=== PATIENT | male | born 1985 | race Caucasian/White ===

== ENCOUNTER 2017-01-24 11:52 | Emergency (ER) | payer BC, OTHER ==
[2017-01-24 12:00] VITALS: BP 131/78
--- NOTE | 2017-01-24 12:19 | ED Physician Documentation ---
PD HPI HEENT - Stated complaint Stated Complaint: LUMP IN THROAT - Chief complaint Chief Complaint: Heent - History obtained from History obtained from: Patient - History of Present Illness Timing - onset: Yesterday Timing - duration: Days Timing - details: Gradual onset, Still present (has had some sore throat and then today had some coughing and feels like there is a lump in his throat. Was not eating at the time.) Location: Throat Associated symptoms: Swollen nodes. No: Fever Similar symptoms before: Has not had sx before Review of Systems Constitutional: reports: Myalgias. denies: Fever, Chills Nose: denies: Rhinorrhea / runny nose, Congestion Throat: reports: Sore throat Cardiac: denies: Chest pain / pressure Respiratory: reports: Cough GI: denies: Abdominal Pain, Nausea, Vomiting, Diarrhea Skin: denies: Rash PD PAST MEDICAL HISTORY - Past Medical History Cardiovascular: None Respiratory: None Neuro: None Endocrine/Autoimmune: None GI: None : None HEENT: None Psych: None Musculoskeletal: None Derm: None - Past Surgical History Past Surgical History: No - Present Medications Home Medications: Ambulatory Orders Medication Instructions Recorded Confirmed Cephalexin Suspension [Keflex] 500 mg PO TID #150 ml 01/24/17 PrednisoLONE [Prelone] 30 mg PO DAILY #50 ml 01/24/17 - Allergies Allergies/Adverse Reactions: Allergies Allergy/AdvReac Type Severity Reaction Status Date / Time No Known Drug Allergies Allergy Verified 01/24/17 12:00 - Social History Does the pt smoke?: Yes Smoking Status: Current every day smoker Does the pt drink ETOH?: Yes Does the pt have substance abuse?: No - Immunizations Immunizations are current?: No Immunizations: TDAP >10years/unknown - POLST Patient has POLST: No PD ED PE NORMAL - Vitals Vital signs reviewed: Yes - General General: Alert and oriented X 3, No acute distress, Well developed/nourished - HEENT HEENT: Ears normal, Moist mucous membranes. No: Pharynx benign (tonsils enlarged and red with some spotty white. No peritonsillar swelling seen, though his feeling of some lower lump feeling would be concerning for early. Anterior neck nodes noted. ) - Neck Neck: Supple, no meningeal sign - Cardiac Cardiac: RRR, No murmur - Respiratory Respiratory: Clear bilaterally - Abdomen Abdomen: Soft, Non tender - Derm Derm: Normal color, Warm and dry Results - Vitals Vitals: Oxygen O2 Source Room air - Labs Labs: Microbiology 01/24/17 12:05 Group A Strep Throat Culture - Final Throat Laboratory Tests 01/24/17 12:05 Group A Strep Rapid Negative PD MEDICAL DECISION MAKING - ED course Complexity details: reviewed results, considered differential (Looks suspicious for strep even though rapid is negative. Will treeat empirically pending culture. ), d/w patient Departure - Departure Disposition: Home, Self Care Clinical Impression: Pharyngitis Qualifiers: Pharyngitis/tonsillitis etiology: unspecified etiology Qualified Code(s): J02.9 - Acute pharyngitis, unspecified Condition: Stable Record reviewed to determine appropriate education?: Yes Instructions: ED Strep Pharyngitis Poss Prescriptions: Cephalexin Suspension [Keflex] 500 mg PO TID #150 ml PrednisoLONE [Prelone] 30 mg PO DAILY #50 ml Comments: Tylenol or Ibuprofen as needed for pains/fevers. Drink lots of fluids. Prednisolone steroid daily for 5 days. Cephalexin antibiotic three times daily as directed. Recheck if not improved over the next couple of days. Forms: Activity restrictions Discharge Date/Time: 01/24/17 12:58
[2017-01-24 12:22] LABS: RAPID STREP SCREEN REAGENT QC YELLOW (YELLOW)
[2017-01-24] MEDS ORDERED: DEXAMETHASONE 10 MG/ML VIAL PO STA (12:38)
[2017-01-24] MEDS ORDERED: DEXAMETHASONE 10 MG/ML VIAL ONE (12:44)
[2017-01-24] MEDS ORDERED: CHERRY SYRUP 10 ML UDC PO ONE (12:44)
== END 2017-01-24 12:58 | disposition home or self-care (01) ==
LOC: ED 11:52
DX: J02.9 Acute pharyngitis, unspecified (principal); F17.200 Nicotine dependence, unspecified, uncomplicated
CPT/HCPCS: 87070; 87430; 99283; A9270

== ENCOUNTER 2017-11-27 03:03 | Emergency (ER) | payer SELFPAY ==
--- NOTE | 2017-11-27 03:58 | XRAY Preliminary Report ---
Exam: XR ABDOMEN ACUTE IMPRESSION: 1. Nonspecific gas pattern without obvious obstruction. [facility] SITE ID: [id number]
--- NOTE | 2017-11-27 03:59 | XRAY Report ---
EXAM: ABDOMINAL SERIES AND PA CHEST EXAM DATE: 11/27/2017 03:41 AM. CLINICAL HISTORY: Abdominal pain and distention. COMPARISON: Chest, 05/05/2015. TECHNIQUE: 2 views abdomen and 1 view chest. FINDINGS: CHEST: Lungs/Pleura: No alveolar consolidation or pleural effusion seen. No pneumothorax. Mediastinum: Within exam limitations, cardiomediastinal contour is normal. ABDOMEN: Bowel Gas Pattern: No obvious dilated loops. A few colonic air-fluid levels are seen. Free Air: None. Other: None. IMPRESSION: 1. Nonspecific gas pattern without obvious obstruction. [facility] Referring Provider Line: [phone] SITE ID: [id number]
--- NOTE | 2017-11-27 04:06 | ED Physician Documentation ---
PD HPI ABD PAIN - Stated complaint Stated Complaint: ABD PRESSURE - Chief complaint Chief Complaint: Abd Pain - History obtained from History obtained from: Patient, Family - History of Present Illness Timing - onset: How many weeks ago (1) Timing - details: Gradual onset, Intermittant Quality: Aching, Indigestion, Fullness/distended Location: All over / everywhere, Epigastric Worsened by: Eating Associated symptoms: Constipation. No: Fever, Nausea, Vomiting, Diarrhea Similar symptoms before: Has not had sx before Recently seen: Not recently seen - Additional information Additional information: Patient is a 32 year old male with no significant past medical history who is presenting to the emergency department for abdominal pain and bloating. patient states that the symptoms have been going on for the last week or so but his girlfriend made him come in. patient states that he has bloating, burping and pressure. patient states that the symptoms are worse when he lies on his stomach. Patient stated that he had a small hard stool yesterday. Review of Systems Constitutional: denies: Fever, Chills Eyes: reports: Reviewed and negative Ears: reports: Reviewed and negative Nose: reports: Reviewed and negative Throat: reports: Reviewed and negative Cardiac: denies: Chest pain / pressure Respiratory: denies: Dyspnea, Cough GI: reports: Abdominal Pain, Constipation. denies: Nausea, Vomiting : denies: Dysuria, Frequency Skin: reports: Reviewed and negative Musculoskeletal: reports: Reviewed and negative Neurologic: reports: Reviewed and negative Psychiatric: reports: Reviewed and negative Immunocompromised: denies: Immunocompromised PD PAST MEDICAL HISTORY - Past Medical History Cardiovascular: None Respiratory: None Neuro: None Endocrine/Autoimmune: None GI: None : None HEENT: None Psych: None Musculoskeletal: None Derm: None - Past Surgical History Past Surgical History: No - Present Medications Home Medications: Ambulatory Orders Medication Instructions Recorded Confirmed Cephalexin Suspension [Keflex] 500 mg PO TID #150 ml 01/24/17 PrednisoLONE [Prelone] 30 mg PO DAILY #50 ml 01/24/17 Sennosides/Docusate Sodium [Colace 2 each PO BID #30 tablet 11/27/17 2-in-1 Tablet] - Allergies Allergies/Adverse Reactions: Allergies Allergy/AdvReac Type Severity Reaction Status Date / Time No Known Drug Allergies Allergy Verified 01/24/17 12:00 - Social History Does the pt smoke?: Yes Smoking Status: Current every day smoker Does the pt drink ETOH?: Yes Does the pt have substance abuse?: No - Immunizations Immunizations are current?: No Immunizations: TDAP >10years/unknown - POLST Patient has POLST: No PD ED PE NORMAL - Vitals Vital signs reviewed: Yes - General General: Alert and oriented X 3, No acute distress - HEENT HEENT: Atraumatic, Moist mucous membranes - Neck Neck: Supple, no meningeal sign - Cardiac Cardiac: RRR - Respiratory Respiratory: No respiratory distress - Derm Derm: Normal color, Warm and dry - Extremities Extremities: No deformity - Neuro Neuro: Alert and oriented X 3 Eye Opening: Spontaneous PD ED PE EXPANDED - Abdomen Abdomen: Tender to palpation, Generalized/diffuse. No: Rebound, Guarding Results - Vitals Vitals: Vital Signs - 24 hr 11/27/17 11/27/17 03:09 04:16 Temperature 36.3 C L Heart Rate 91 77 Respiratory 16 16 Rate Blood Pressure 153/91 H 135/85 H O2 Saturation 97 95 Oxygen O2 Source Room air - Rads (name of study) abd x-ray Radiology: Final report received, EMP read contemporaneously (moderate stool burden, ) PD MEDICAL DECISION MAKING - ED course Complexity details: reviewed old records, reviewed results, re-evaluated patient , considered differential, d/w patient, d/w family ED course: Patient was seen and examined at bedside. patient was sent for imaging. when patient returned the results were reviewed. Findings were consistent with constipation. patient was made aware of the findings. Patient was well appearing and given detailed discharge and follow up instructions. patient was stable for outpatient follow up. Departure - Departure Disposition: 01 Home, Self Care Clinical Impression: Constipation Condition: Good Instructions: ED Constipation Follow-Up: primary,care provider [Other] - As Needed Prescriptions: Sennosides/Docusate Sodium [Colace 2-in-1 Tablet] 2 each PO BID #30 tablet Comments: Your symptoms today are being caused by constipation. The most important thing you can do is increase your water intake. You should also increase the amounts of raw fruits and vegetables. You should follow up with your doctor if your symptoms don't improve in the next week. Discharge Date/Time: 11/27/17 04:16
[2017-11-27 04:16] VITALS: BP 135/85
== END 2017-11-27 04:16 | disposition home or self-care (01) ==
LOC: ED 03:03
DX: K59.00 Constipation, unspecified (principal); F17.200 Nicotine dependence, unspecified, uncomplicated
CPT/HCPCS: 74022; 80053; 83690; 85025; 99283

== ENCOUNTER 2017-12-12 21:13 | Emergency (ER) | payer SELFPAY ==
--- NOTE | 2017-12-12 22:12 | ED Physician Documentation ---
PD HPI ABD PAIN - Stated complaint Stated Complaint: ABD PX - Chief complaint Chief Complaint: MHE - History obtained from History obtained from: Patient - History of Present Illness Timing - onset: How many hours ago (1.5) Timing - details: Abrupt onset Quality: Dull, Pain Location: Epigastric Radiation: Other (no radiation) Improved by: Other (no ameliorating factors) Worsened by: Other (no exacerbating factors tonight, although some previous episodes worsen with food) Associated symptoms: Nausea. No: Vomiting, Diarrhea, Constipation (patient does not feel he is constipated) Similar symptoms before: Other (evaluated earlier this month in this ED for same ) Recently seen: Emergency Dept - Additional information Additional information: c/o epigastric dull ache x 1.5 hours. has had similar episodes x weeks Review of Systems Constitutional: reports: Reviewed and negative Cardiac: reports: Reviewed and negative Respiratory: reports: Reviewed and negative GI: reports: Abdominal Pain, Nausea. denies: Abdominal Swelling, Vomiting, Diarrhea : denies: Dysuria, Frequency PD PAST MEDICAL HISTORY - Past Medical History Cardiovascular: None Respiratory: None Neuro: None Endocrine/Autoimmune: None GI: None : None HEENT: None Psych: None Musculoskeletal: None Derm: None - Past Surgical History Past Surgical History: No - Present Medications Home Medications: Ambulatory Orders Medication Instructions Recorded Confirmed Cephalexin Suspension [Keflex] 500 mg PO TID #150 ml 01/24/17 PrednisoLONE [Prelone] 30 mg PO DAILY #50 ml 01/24/17 Sennosides/Docusate Sodium [Colace 2 each PO BID #30 tablet 11/27/17 2-in-1 Tablet] - Allergies Allergies/Adverse Reactions: Allergies Allergy/AdvReac Type Severity Reaction Status Date / Time No Known Drug Allergies Allergy Verified 12/12/17 21:19 - Social History Does the pt smoke?: Yes Smoking Status: Current every day smoker Does the pt drink ETOH?: Yes Does the pt have substance abuse?: No - Immunizations Immunizations are current?: No Immunizations: TDAP >10years/unknown - POLST Patient has POLST: No PD ED PE NORMAL - Vitals Vital signs reviewed: Yes - General General: Alert and oriented X 3, No acute distress, Well developed/nourished - Cardiac Cardiac: RRR, No murmur - Respiratory Respiratory: No respiratory distress, Clear bilaterally - Abdomen Abdomen: Normal bowel sounds, Soft, Non distended - Derm Derm: Normal color, Warm and dry, No rash PD ED PE EXPANDED - Abdomen Abdomen: Tender to palpation, RUQ, Epigastric. No: Rebound, Guarding Results - Vitals Vitals: Oxygen O2 Source Room air - Labs Labs: Laboratory Tests 12/12/17 12/12/17 22:53 22:53 WBC 7.0 RBC 5.46 Hgb 15.4 Hct 44.9 MCV 82.3 MCH 28.2 MCHC 34.2 RDW 13.2 Plt Count 176 MPV 8.7 Neut # 4.0 Lymph # 2.1 Gila # 0.7 Eos # 0.1 Baso # 0.1 Absolute Nucleated RBC 0.00 Nucleated RBC % 0.0 Sodium 137 Potassium 3.8 Chloride 105 Carbon Dioxide 25 Anion Gap 7.0 BUN 23 H Creatinine 1.1 Estimated GFR (MDRD) 78 L Glucose 115 H Calcium 9.4 Total Bilirubin 0.6 AST 24 ALT 24 Alkaline Phosphatase 48 Total Protein 7.1 Albumin 4.4 Globulin 2.7 Albumin/Globulin Ratio 1.6 Lipase 39 - Rads (name of study) RUQ US Radiology: Prelim report reviewed, See rad report PD MEDICAL DECISION MAKING - ED course Complexity details: reviewed results, re-evaluated patient, considered differential, d/w patient ED course: declined medication for symptoms during ED stay Departure - Departure Disposition: 01 Home, Self Care Clinical Impression: Abdominal pain Condition: Good Instructions: ED Abdominal Pain Unkn Cause Male Follow-Up: [facility] [Provider Group] [facility] [Provider Group] Comments: Take omeprazole ([id number]) once daily for 2 weeks. You can try magnesium citrate (onbe-rdl-imlzwxj) as directed on the label if you feel constipated. Discharge Date/Time: 12/13/17 02:17
[2017-12-12 22:59] LABS: BASOPHILS # (AUTO) 0.1 10^3/uL (0.0-0.1); BASOPHILS % (AUTO) 0.9 %; EOSINOPHILS # (AUTO) 0.1 10^3/uL (0.0-0.7); EOSINOPHILS % (AUTO) 0.9 %; HGB - HEMOGLOBIN 15.4 g/dL (14.0-18.0); LYMPHOCYTES # (AUTO) 2.1 10^3/uL (1.5-3.5); LYMPHOCYTES % (AUTO) 30.4 %; MEAN CORPUSCULAR HEMOGLOBIN 28.2 pg (27.0-31.0); MEAN CORPUSCULAR HGB CONC 34.2 g/dL (32.0-36.0); MEAN CORPUSCULAR VOLUME 82.3 fL (80.0-94.0); MEAN PLATELET VOLUME 8.7 fL (7.4-11.4); MONOCYTES # (AUTO) 0.7 10^3/uL (0.0-1.0); MONOCYTES % (AUTO) 10.3 %; NEUTROPHILS % (AUTO) 57.5 %; PLT - PLATELET COUNT 176 10^3/uL (130-450); RED BLOOD COUNT 5.46 10^6/uL (4.70-6.10); RED CELL DISTRIBUTION WIDTH 13.2 % (12.0-15.0)
[2017-12-12 23:14] LABS: ALBUMIN 4.4 g/dL (3.2-5.5); ALBUMIN/GLOBULIN RATIO 1.6 (1.0-2.2); BILIRUBIN,TOTAL 0.6 mg/dL (0.2-1.0); CALCIUM 9.4 mg/dL (8.5-10.3); CREATININE 1.1 mg/dL (0.6-1.2); TOTAL PROTEIN 7.1 g/dL (6.7-8.2)
--- NOTE | 2017-12-13 00:17 | Ultrasound Preliminary Report ---
Exam: US ABDOMEN LIMITED IMPRESSION: 1. Gallbladder appears normal. 2. Fatty liver. [facility] SITE ID: [id number]
--- NOTE | 2017-12-13 00:26 | Ultrasound Report ---
EXAM: ABDOMEN ULTRASOUND LIMITED, RUQ EXAM DATE: 12/13/2017 12:07 AM. CLINICAL HISTORY: Abdominal pain. COMPARISON: None. TECHNIQUE: Real-time scanning was performed with static images obtained. FINDINGS: Liver: Echogenic without gross focal abnormality seen. Main portal vein flow: Hepatopetal. Gallbladder: Normal. No stones, wall thickening, or sonographic Montoya's sign. Biliary System: CBD measures 3 mm. No intrahepatic or extrahepatic ductal dilatation. Other: Visualized portions of the pancreas and right kidney are unremarkable. IMPRESSION: 1. Gallbladder appears normal. 2. Fatty liver. [facility] Referring Provider Line: [phone] SITE ID: [id number]
[2017-12-13 02:17] VITALS: BP 114/63
== END 2017-12-13 02:17 | disposition home or self-care (01) ==
LOC: ED 21:13
DX: R10.9 Unspecified abdominal pain (principal); K76.0 Fatty (change of) liver, not elsewhere classified; F17.200 Nicotine dependence, unspecified, uncomplicated; Z79.52 Long term (current) use of systemic steroids
CPT/HCPCS: 36415; 76705; 80053; 83690; 85025; 99283

== ENCOUNTER 2019-09-07 13:56 | Outpatient (CLI) | payer MEDICAID, OTHER ==
--- NOTE | 2019-09-07 16:21 | SLEEP CARE CONSULTATION ---
Information from patient questionnaire entered by Anne Abraham. I have reviewed and concur with the information entered by Anne Abraham. This document represents the service I personally performed and the decisions made by me, Jerrod Reis MD, [facility]. History of Present Illness Reason for Visit: New patient Chief Complaint: reports: Snoring, Excessive daytime sleepiness, Observed pauses in breathing, Frequent awakenings at night Duration of Symptoms: long time Usual bedtime: [id number] Time it takes to fall asleep: 1-2 hours Snores at night: Yes Observed to quit breathing while asleep: Yes Sleeps alone due to snoring: No Number of times waking at night: 3-4 Toss, Turn, or Twitch while sleeping: No Recalls having dreams: Yes Usually gets out of bed at: [id number] Feels refreshed in the morning: No Morning headache: Yes Sleepy or fatigued during the day: Yes Ever fallen asleep while driving: No Takes day naps: Yes Dreams during day naps: No Prior sleep studies: Yes Year and Where: in home test Additional HPI information: I had the pleasure of seeing Mr. Byrd today regarding the possibility of him having a sleep disorder. As you know, he is a 33 year old gentleman who observed to quit breathing while having a surgery. He had a home sleep apnea test (HSAT) a year or two ago that was negative. The patient tells me that he normally goes to bed around 9 - 10 pm, and it takes him approximately 1 2 hours to fall asleep. He takes an [id number]-rnedtpy sleep aid. He has been told that he snores loudly and irregularly at night. He has also been observed to stop breathing in his sleep. His girlfriend can still sleep in the same bed. He can recall waking up on the average of 3 - 4 times during the night. Most of the time he wakes up because of no apparent reasons. He has never awakened because of his own snoring, choking, or having to gasp for air. There is not a lot of tossing and turning in his sleep. No somniloquy (sleep talking) or somnambulism (sleep walking). Generally he can recall having dreams. In the morning he usually gets up out of the bed around 8 - 9 a.m. not feeling refreshed nor rested. He usually does have a morning headache lasting less than an hour. During the day he complains of feeling sleepy and fatigued. His score on [place] Sleepiness Scale is 6 out of 24. He has never fallen asleep while driving nor has had any accident due to sleepiness. He usually takes naps during the day. Upon falling asleep during the day he denies having vivid dreams. He has never had sleep paralysis, experienced cataplexy but reports symptoms of restless leg syndrome. He denies having impaired concentration during the day. Subjective Initial [place] Sleepiness Scale score: 6 Past Medical History Past Medical History: reports: Anxiety, Depression Social History The patient's occupation is a caregiver. Patient is and lives in [place]. Have you smoked in the past 12 months: Yes Years of smokin Alcohol use: No Caffeine use: Yes Caffeine amount and frequency: 2/day Family History Family history of sleep disordered breathing: Yes Family Hx Sleep Apnea: Father: Snoring ( ), Other: Sleep apnea - Treated (uncle) Allergies and Home Medications Drug allergies reviewed: Yes Home medication list reviewed: Yes Allergy and home medication list: Meds: Colace, Xanax, Lexapro Allergies: no known drug allergies Review of Systems Weight gain over past 5 years: 10 Cardiovascular: reports: palpitations Respiratory: denies: shortness of breath, wheeze, sputum production, chronic cough, other Gastrointestinal: reports: heartburn Urinary: denies: incontinence, frequency, urgency, impotence, other Neurological: denies: headaches, seizure, head trauma, disorientation, speech dysfunction, gait or balance problems, fainting or unconsciousness, other Psychiatric: reports: anxiety, depression Ear/Nose/Throat: reports: sinus problems Endocrine: reports: too hot or cold Musculoskeletal: denies: joint pain, neck pain, back pain, joint swelling, muscle pain or cramping, mobility problems, other Immunologic: reports: sneezing Physical Exam Vital signs obtained and entered by: Dr. Reis Blood Pressure: 142/89 Cuff size: regular Heart Rate: 72 O2 Saturation: 94 Height: 6 ft 1 in Weight: 240 lb Body Mass Index: 31.6 BMI Classification: Obesity Class 1 Neck circumference: 19.5 Mood/affect: normal HEENT: No craniofacial malformation Nostrils: patent to airflow Turbinates: normal Septum: midline Mouth and throat: narrow oropharynx Soft palate: long Hard palate: normal Uvula: normal Uvula visualization: 50% Mallampati Class II Tongue: normal in size Tonsils: 2+ Chin and jaw: normal size and position Neck: normal w/o lymphadenopathy or thyromegaly Heart: regular rate and rhythm Lungs: clear bilaterally Abdomen: soft, non-tender Extremities: no edema or clubbing Neurologic: intact, no focal deficits Impression and Plan IMPRESSION: 1. Obstructive Sleep Apnea-Hypopnea Syndrome, as suggested by history of loud and irregular snoring, observed cessation of breath while asleep, frequent awake nings during the night, unrefreshed sleep, and daytime hypersomnolence. Narrow oropharynx and obesity are common predisposing factors for obstructive sleep apnea-hypopnea syndrome. Pathophysiology of sleep-disordered breathing was discussed. Because the suspicion of obstructive sleep apnea-hypopnea is high and he had a negative home sleep apnea test (HSAT), the patient will be scheduled for an in-laboratory polysomnography which is more accurate. Plan: 1. Schedule polysomnography 2. Avoid long distance driving or when feeling sleepy. 3. Avoid alcohol, sedative and muscle relaxant around bedtime. 4. Attempt to lose weight. 5. Return in 1 to 2 weeks after the study to discuss results and initiate therapy. I spent 100% of this visit face to face with the patient with greater than 50% of this was spent time counseling the patient and coordination of care.
[2019-09-07 16:22] VITALS: BP 142/89
== END 2019-09-07 13:57 | disposition home or self-care (01) ==
LOC: SC 13:56
PROVIDERS: ATTEND Internal Medicine Pulmonary Disease
DX: G47.10 Hypersomnia, unspecified (principal); R06.81 Apnea, not elsewhere classified; G47.8 Other sleep disorders; R06.83 Snoring; E66.9 Obesity, unspecified; Z68.31 Body mass index [BMI] 31.0-31.9, adult
CPT/HCPCS: 99203; 99212

== ENCOUNTER 2019-09-17 10:00 | Outpatient (CLI) | payer MEDICAID ==
[2019-09-17 12:29] LABS: BASOPHILS # (AUTO) 0.1 10^3/uL (0.0-0.1); BASOPHILS % (AUTO) 0.7 %; EOSINOPHILS # (AUTO) 0.1 10^3/uL (0.0-0.7); EOSINOPHILS % (AUTO) 1.1 %; HGB - HEMOGLOBIN 17.3 g/dL (14.0-18.0); LYMPHOCYTES # (AUTO) 3.2 10^3/uL (1.5-3.5); LYMPHOCYTES % (AUTO) 44.6 %; MEAN CORPUSCULAR HEMOGLOBIN 29.3 pg (27.0-31.0); MEAN CORPUSCULAR HGB CONC 34.5 g/dL (32.0-36.0); MEAN CORPUSCULAR VOLUME 85.1 fL (80.0-94.0); MEAN PLATELET VOLUME 10.8 fL (7.4-11.4); MONOCYTES # (AUTO) 0.7 10^3/uL (0.0-1.0); MONOCYTES % (AUTO) 10.2 %; NEUTROPHILS # (AUTO) 3.1 10^3/uL (1.5-6.6); NEUTROPHILS % (AUTO) 42.8 %; PLT - PLATELET COUNT 238 10^3/uL (130-450); RED CELL DISTRIBUTION WIDTH 12.5 % (12.0-15.0); WHITE BLOOD COUNT 7.2 x10^3/uL (4.8-10.8)
[2019-09-17 13:17] LABS: ALBUMIN 4.3 g/dL (3.2-5.5); ALBUMIN/GLOBULIN RATIO 1.4 (1.0-2.2); ALKALINE PHOSPHATASE 50 IU/L (42-121); ALT ALANINE AMINOTRANSFERASE 43 IU/L (10-60); AST ASPARTATE AMINOTRANSFERASE 27 IU/L (10-42); BILIRUBIN,TOTAL 0.7 mg/dL (0.2-1.0); BUN - BLOOD UREA NITROGEN 21 mg/dL (6-20); CALCIUM 9.5 mg/dL (8.5-10.3); CARBON DIOXIDE - CO2 26 mmol/L (21-32); CHLORIDE 103 mmol/L (101-111); CHOL/HDL RATIO 6.8 (<5.0); CHOLESTEROL 204 mg/dL; CREATININE 1.4 mg/dL (0.6-1.2); GFR - MDRD 59 (>89); GLUCOSE 112 mg/dL (70-100); HDL CHOLESTEROL 30 mg/dL; LDL CHOLESTEROL,CALCULATED 96 mg/dL; LDL/HDL RATIO 3.2 (<3.6); SODIUM 139 mmol/L (135-145); TOTAL PROTEIN 7.4 g/dL (6.7-8.2); VLDL CHOLESTEROL 78 mg/dL
[2019-09-17 13:28] LABS: HB2 TOTAL 17.1 g/dL; HEMOGLOBIN A1C 0.68 g/dL; HEMOGLOBIN A1C % 5.8 % (4.6-6.2)
== END 2019-09-17 23:59 | disposition home or self-care (01) ==
LOC: LAB.N 10:00
PROVIDERS: ATTEND Family Medicine
DX: Z00.00 Encounter for general adult medical examination without abnormal findings (principal)
CPT/HCPCS: 36415; 80053; 80061; 83036; 83721; 84443; 85025

== ENCOUNTER → 2019-10-14 | Outpatient (CLI) | payer MEDICAID | LOC: SC 19:30 | PROVIDERS: ATTEND Internal Medicine Pulmonary Disease | DX: G47.33 Obstructive sleep apnea (adult) (pediatric) (principal) | CPT/HCPCS: 95806 ==

== ENCOUNTER 2019-12-14 08:00 | Outpatient (CLI) | payer MEDICAID ==
[2019-12-14 13:49] LABS: ALBUMIN 4.4 g/dL (3.2-5.5); ALBUMIN/GLOBULIN RATIO 1.5 (1.0-2.2); ALKALINE PHOSPHATASE 57 IU/L (42-121); ALT ALANINE AMINOTRANSFERASE 32 IU/L (10-60); AST ASPARTATE AMINOTRANSFERASE 24 IU/L (10-42); BILIRUBIN,TOTAL 0.8 mg/dL (0.2-1.0); BUN - BLOOD UREA NITROGEN 23 mg/dL (6-20); CALCIUM 9.1 mg/dL (8.5-10.3); CARBON DIOXIDE - CO2 25 mmol/L (21-32); CHLORIDE 102 mmol/L (101-111); CHOL/HDL RATIO 7.4 (<5.0); CHOLESTEROL 215 mg/dL; CREATININE 1.1 mg/dL (0.6-1.2); GLUCOSE 121 mg/dL (70-100); HDL CHOLESTEROL 29 mg/dL; LDL CHOLESTEROL,CALCULATED 141 mg/dL; LDL/HDL RATIO 4.9 (<3.6); SODIUM 136 mmol/L (135-145); TOTAL PROTEIN 7.4 g/dL (6.7-8.2); VLDL CHOLESTEROL 45 mg/dL
[2019-12-14 13:50] LABS: HEMOGLOBIN A1C 0.59 g/dL; HEMOGLOBIN A1C % 5.3 % (4.6-6.2)
== END 2019-12-14 23:59 | disposition home or self-care (01) ==
LOC: LAB.WCP 08:00
PROVIDERS: ATTEND Family Medicine
DX: N18.3 Chronic kidney disease, stage 3 (moderate) (principal); R73.03 Prediabetes; E78.5 Hyperlipidemia, unspecified
CPT/HCPCS: 36415; 80053; 80061; 83036; 83721

== ENCOUNTER 2019-12-16 17:06 | Outpatient (CLI) | payer MEDICAID ==
--- NOTE | 2019-12-16 16:32 | SLEEP CARE CONSULTATION ---
Information from patient questionnaire entered by Anne Abraham. I have reviewed and concur with the information entered by Anne Abraham. This document represents the service I personally performed and the decisions made by me, Jasmine Tristan, RN, MSN, PLUMBING HARDWARE ASSEMBLER. History of Present Illness Service Date and Time: 12/16/2019 1600 Initial [place] Sleepiness Scale score: 6 Additional HPI information: SAMMY BYRD returns for tele health video follow up to discuss results of the recently performed home sleep study. I explained the pathophysiology behind obstructive sleep apnea. We then spent quite a bit of time discussing different treatment options. For mild ob structive sleep apnea, surgery and oral appliance are alternatives to nasal CPAP therapy but in moderate or severe cases, nasal CPAP is the most effective and reliable treatment. I reviewed the impact of weight changes on sleep apnea and strongly recommended losing weight. After some discussion, the patient opted to go with the nasal CPAP therapy. Nasal autoCPAP set at [id number] will be ordered with rationale explained. A manual titration study will be ordered if unable to find optimal pressure with office adjustments. I explained how CPAP machine works and what to expect when using the machine. Using CPAP every night in order to get used to it was emphasized. Patient advised to put CPAP mask on before getting into bed so as not to fall asleep without CPAP. To assist acclimation to CPAP use, it could also be used for a short time during day while reading or watching TV. The patient was instructed to call the CPAP supplier to discuss any mechanical problem that may occur. If the mask given is uncomfortable or is difficult to keep on through the night even with adjustment, contact the CPAP supplier as many will replace with another mask style if notified before 30 days. If snoring or perceives is not getting enough air or too much air from the machine, notify this office. AASM patient education PAP tips reviewed and given to patient. Patient counseled not drink alcohol less than 4 hours before bedtime as it can increase snoring and apnea. Patient was cautioned about risks of drowsy driving until sleepiness symptoms resolve. Sleep Study - Results Polysomnography/Home Sleep Study results: The patient underwent one night of study. The data was recorded internally to memory built into the SleepView unit and uploaded to [email or web address] website for scoring and interpretation. All raw data, graphically depicting all recorded channels, was utilized for scoring and detailed interpretive review. The standards put forth by the [place] [employer] were followed for the complete scoring by a Registered Corporate Administrative Assistant and interpretation by a Board Certified Sleep Medicine Physician. SLEEP TIME AND EFFICIENCY: The sleep study recording began at 09:38:38 PM and ended at 08:16:00 AM. Total recording time was 637.4 minutes. The total sleep time was 604.5 minutes. The sleep efficiency was 94.8 percent. The patient spent 129.5 minutes supine, and spent 475.0 minutes non-supine. The patients own estimate of sleep time was 8.00 hours. RESPIRATORY DATA: The AHI in this report is indexed to sleep time based on actigraphy. The AASM defines this as JENSEN. The AHI on this type 3 Home Sleep Study may understate the AHI determined on a type 1 or 2 study, since EEG is not monitored resulting in the inability to score non-desaturating hypopneas. Based on 4% Calculation: The AHI4% calculation of 19.2 per hour of recording time was based on a total of 181 scored apneas and 12 scored hypopneas with 4% desaturations. Supine AHI4%: 56.1 per hour. Non-supine AHI4%: 9.1 per hour. Oxygen Summary: Patient's baseline O2 saturation was 97.3 %. The patient spent 12.4 minutes at an oxygen saturation less than 90%, and 1.9 minutes less than 85%. The desaturation index was 9.3 events per hour sleep time. The lowest saturation was 75.2 %. SNORING: The percent of the study time spent snoring was 1.2 %. The Snoring Count was 233 . The Snoring Index was Patient Name: Sammy Byrd Jr Study Date: 10/14/2019 : 1985 Page 2 of 7 23.1 . PULSE RATE REVIEW: The mean heart rate was 57 beats per minute. The rate ranged from a low of 35 to a high of 92 beats per minute. DIAGNOSIS CODE: Moderate obstructive sleep apnea G47.33, occurring mainly during supine sleep Moderate desaturations were noted. Allergies and Home Medications Home medication list reviewed: Yes (added cholesterol medication) Review of Systems Review of systems same as previous: Yes (hyperlipidemia ) Physical Exam Height: 6 ft 1 in Weight: 232 lb (home weight) Body Mass Index: 30.6 BMI Classification: Obese Impression and Plan 1. Obstructive Sleep Apnea-Hypopnea Syndrome, moderate, with lowest oxygen saturation of 75.2%. Obviously this is the cause of the patients symptoms of un refreshed sleep, and excessive daytime sleepiness. Positive pressure therapy could benefit his anxiety. As mentioned above, the patient will be started on nasal autoCPAP therapy with pressure set at 4-15 cmH2O. A manual titration study will be completed if unable to find optimal treatment pressure with office adjustments. Compliance guidelines also reviewed. A copy of compliance guidelines will be sent for reference at check out along with the PAP treatment pamphlet. Because the apnea is more severe supine, I instructed to avoid sleeping supine using pillow positioning until able to start CPAP use. Due to moderate hypoxia, an urgent set up will be requested. * Nasal auto CPAP therapy, pressure at 4-15 cm H2O. * Attempt to lose weight. * Avoid alcohol consumption near bedtime. * Avoid supine sleep until using CPAP. * The patient is again cautioned about driving until sleepiness completely resolves. * Return one month after CPAP obtained. I will assess response to therapy and compliance at that time. Visit Type: Telehealth Video (to minimize the risk of COVID 19 exposure, the patient has agreed to this visit and to bill his insurance.) Video Type: [employer] Location of Provider: Home Patient agrees and consents to this telehealth visit type: Yes Time Spent with Patient (minutes): 20 Provider Statement: I spent 100% of the Telehealth Video Call with the patient with greater than 50% spent counseling the patient and coordination of care.
== END 2019-12-16 17:07 | disposition home or self-care (01) ==
LOC: SC 17:06
PROVIDERS: ATTEND Nurse Practitioner Family
DX: G47.33 Obstructive sleep apnea (adult) (pediatric) (principal); E66.9 Obesity, unspecified; Z68.30 Body mass index [BMI] 30.0-30.9, adult

== ENCOUNTER 2020-01-10 21:41 | Emergency (ER) | payer MEDICAID ==
[2020-01-10 22:27] VITALS: BP 130/81
[2020-01-10 22:38] LABS: RAPID STREP SCREEN Negative (Negative)
--- NOTE | 2020-01-10 22:56 | ED Physician Documentation ---
PD HPI HEENT - Stated complaint Stated Complaint: SORE THROAT - Chief complaint Chief Complaint: Heent - History obtained from History obtained from: Patient - History of Present Illness Timing - onset: How many weeks ago (1) Timing - details: Gradual onset Pain level now: 6 Location: Throat Improves: Nothing Worsens: Swalllowing Associated symptoms: No: Fever, Unable to swallow, Facial swelling Recently seen: Not recently seen - Additional information Additional information: c/o 1 week sore throat, odynophagia. h/o recurrent pharyngitis, has seen ENT and plan is to have tonsillectomy (this had to be postponed due to COVID) Review of Systems Constitutional: denies: Fever Ears: denies: Ear pain Nose: denies: Rhinorrhea / runny nose, Congestion Throat: reports: Sore throat PD PAST MEDICAL HISTORY - Past Medical History Cardiovascular: None Respiratory: None Endocrine/Autoimmune: None GI: None : None HEENT: None Psych: None Musculoskeletal: None Derm: None - Past Surgical History Past Surgical History: No - Present Medications Home Medications: Ambulatory Orders Medication Instructions Recorded Confirmed ALPRAZolam [Alprazolam] 01/10/20 - Allergies Allergies/Adverse Reactions: Allergies Allergy/AdvReac Type Severity Reaction Status Date / Time No Known Drug Allergies Allergy Verified 01/10/20 22:26 - Social History Does the pt smoke?: Yes Smoking Status: Current every day smoker Does the pt drink ETOH?: Yes Does the pt have substance abuse?: No - Immunizations Immunizations are current?: No Immunizations: TDAP >10years/unknown - POLST Patient has POLST: No PD ED PE NORMAL - Vitals Vital signs reviewed: Yes - General General: Alert and oriented X 3, No acute distress, Well developed/nourished - HEENT HEENT: Moist mucous membranes - Neck Neck: Supple, no meningeal sign PD ED PE EXPANDED - HEENT HEENT: Swollen tonsils (bilateral tonsillar hypertrophy, symmetric and without erythema or exudate). No: Pharyngeal erythema, Tonsillar exudate Results - Vitals Vitals: Vital Signs - 24 hr 01/10/20 22:24 Temperature 37.3 C Heart Rate 80 Respiratory 18 Rate Blood Pressure 130/81 H O2 Saturation 95 Oxygen O2 Source Room air - Labs Labs: Laboratory Tests 01/10/20 22:24 Group A Strep Rapid Negative PD MEDICAL DECISION MAKING - ED course Complexity details: reviewed results, considered differential, d/w patient Departure - Departure Disposition: 01 Home, Self Care Clinical Impression: Pharyngitis Qualifiers: Pharyngitis/tonsillitis etiology: unspecified etiology Qualified Code(s): J02.9 - Acute pharyngitis, unspecified Condition: Good Instructions: ED Pharyngitis Viral Report Pending Follow-Up: KATHIE MAYA MD [Primary Care Provider] - Discharge Date/Time: 01/10/20 23:25
[2020-01-10] MEDS ORDERED: CHERRY SYRUP 10 ML UDC PO ONE (23:16)
[2020-01-10] MEDS ORDERED: DEXAMETHASONE 10 MG/ML VIAL PO STA (23:16)
== END 2020-01-10 23:25 | disposition home or self-care (01) ==
LOC: ED 21:41
DX: J02.9 Acute pharyngitis, unspecified (principal); F17.200 Nicotine dependence, unspecified, uncomplicated
CPT/HCPCS: 87070; 87430; 99283; A9270

== ENCOUNTER 2020-03-09 15:34 | Outpatient (CLI) | payer MEDICAID ==
[2020-03-09 16:27] VITALS: BP 130/80
--- NOTE | 2020-03-09 16:27 | SLEEP CARE CONSULTATION ---
Information from patient questionnaire entered by Wendi Aguila. I have reviewed and concur with the information entered by Wendi Aguila. This document represents the service I personally performed and the decisions made by me, Jasmine Tristan, RN, MSN, LEATHER LEVELER. History of Present Illness Service Date and Time: 03/09/2020 1534 Previous diagnosis: Moderate, Obstructive Sleep Apnea-Hypopnea Syndrome AHI: 19.2 (in 2019) Reason for follow up: first compliance Equipment type: CPAP Equipment obtained from: [employer] (no supplies since set up and device is notifying need to change his mask cushion.) Mask style: Full face Mask brand: Resmed ([id number]) Backup mask available: No (keep current mask as spare when replaced. ) Last cushion change: none since set up Prior sleep studies: Yes Year and Where: 2019 [facility] Type of Sleep Study: Home sleep study CPAP Compliance Data - Data Reviewed with Patient Average duration of nightly device use: 2.95 Compliance rate %: 20 Current pressure setting (cmH2O): 6-8 Humidity settin Heated hose settin Average residual AHI: 4.4 Average large leak: 6 min 27 sec Subjective Patient concerns: reports: mask discomfort (mask headgear has been loosened to reduce discomfort with resolve. He also obtained a CPAP pillow which helped. ), condensation in mask/hose (mask), nasal congestion (mild - using saline nasal spray. ), other (waking with mask off face most mornings and nights. ). denies: aerophagia, air blowing in eyes, mask leak noise, dry mouth, nose, throat, epistaxis Observed to snore while using device: No Current pressure setting perceived as: comfortable (with use of ramp) On therapy, patient: reports: sleeping better, awakening more refreshed, being more awake and alert during the day, more rested overall. denies: drowsiness while driving Initial [place] Sleepiness Scale score: 6 (in 2019) Current [place] Sleepiness Scale score: 10 Allergies and Home Medications Known drug allergies: No Home medication list reviewed: No ( no changes ) Review of Systems Review of systems same as previous: Yes Physical Exam Blood Pressure: 130/80 Cuff size: long Heart Rate: 96 O2 Saturation: 82 Height: 6 ft 1 in Weight: 223 lb 4.8 oz Body Mass Index: 29.5 BMI Classification: Overweight Impression and Plan 1. Obstructive Sleep Apnea-Hypopnea Syndrome, moderate, with poor treatment compliance and good apnea control. On CPAP therapy, the patient has better sleep quality and is more rested overall. Compliance is affected by him pulling off mask in his sleep for unknown reason. To assist with mask acclimation, he is advised to use CPAP about 30-60 minutes a day while reading or watching TV. In addition, I will adjust the autoCPAP range to start at 4cmH20 as always needs to use ramp feature. I will expand the top number to [id number] as he has more sleep on nights of higher pressure used up to [id number]. I again reviewed compliance goals. He is also to ask girlfriend to wake him if his mask is off so can put back on. For condensation in mask, he is advised to raise the heated hose one setting a night until dry. He sleeps in a room with AC. This may assist him to keep mask on longer. For nasal congestion, he is to raise humidity so I will have him start by increasing humidity to 3 and heated hose 4 to start and adjust as needed with rationale discussed for setting adjustments. Questions answered about supplies and advised to contact [facility] for more cushions with rationale. Patient's apnea severity and rationale for treatment to reduce apnea, improve sleep quality and reduce cardiovascular and cerebrovascular events was reviewed. * * Change auto CPAP pressure to 4-12 cmH2O * Implement methods to reduce nasal congestion and condensation. * Mask acclimation * Notify me if snoring with mask or feeling that the pressure is too much or too little * Attempt to lose weight * Call this office if any problems using CPAP * Return for follow up in 1 month , or sooner if concerns arise Visit Type: In Office Time Spent with Patient (minutes): 35 Provider Statement: I spent 100% of the Face to Face Visit with the patient with greater than 50% spent counseling the patient and coordination of care.
== END 2020-03-09 15:35 | disposition home or self-care (01) ==
LOC: SC 15:34
PROVIDERS: ATTEND Nurse Practitioner Family
DX: G47.33 Obstructive sleep apnea (adult) (pediatric) (principal); E66.3 Overweight; Z68.29 Body mass index [BMI] 29.0-29.9, adult
CPT/HCPCS: 99212; 99214

== ENCOUNTER 2020-03-11 08:00 | Outpatient (CLI) | payer MEDICAID ==
[2020-03-11 18:45] LABS: ALBUMIN 4.5 g/dL (3.2-5.5); ALBUMIN/GLOBULIN RATIO 1.5 (1.0-2.2); ALKALINE PHOSPHATASE 49 IU/L (42-121); ALT ALANINE AMINOTRANSFERASE 31 IU/L (10-60); AST ASPARTATE AMINOTRANSFERASE 24 IU/L (10-42); BILIRUBIN,TOTAL 1.1 mg/dL (0.2-1.0); BUN - BLOOD UREA NITROGEN 20 mg/dL (6-20); CALCIUM 9.8 mg/dL (8.5-10.3); CARBON DIOXIDE - CO2 26 mmol/L (21-32); CHLORIDE 100 mmol/L (101-111); CHOL/HDL RATIO 6.1 (<5.0); CHOLESTEROL 176 mg/dL; CREATININE 1.3 mg/dL (0.6-1.2); GLUCOSE 96 mg/dL (70-100); HDL CHOLESTEROL 29 mg/dL; LDL CHOLESTEROL,CALCULATED 92 mg/dL; LDL/HDL RATIO 3.2 (<3.6); SODIUM 139 mmol/L (135-145); TOTAL PROTEIN 7.6 g/dL (6.7-8.2); VLDL CHOLESTEROL 55 mg/dL
== END 2020-03-11 23:59 | disposition home or self-care (01) ==
LOC: LAB.WCP 08:00
PROVIDERS: ATTEND Family Medicine
DX: E78.5 Hyperlipidemia, unspecified (principal)
CPT/HCPCS: 36415; 80053; 80061; 83721

== ENCOUNTER 2020-04-12 16:02 | Outpatient (CLI) | payer MEDICAID ==
--- NOTE | 2020-04-12 16:43 | SLEEP CARE CONSULTATION ---
Information from patient questionnaire entered by Arely Byrd. I have reviewed and concur with the information entered by Arely Byrd. This document represents the service I personally performed and the decisions made by me, Radha Welch ARNP. History of Present Illness Service Date and Time: 04/12/2020 1602 Previous diagnosis: Moderate, Obstructive Sleep Apnea-Hypopnea Syndrome AHI: 19.2 (in 2019) Reason for follow up: one month (pressure change) Equipment type: CPAP Equipment obtained from: [employer] (getting supplies as needed) Mask style: Full face Mask brand: [id number] Backup mask available: Yes (old mask) Last cushion change: first change today Prior sleep studies: Yes Year and Where: 2019 - [facility] Type of Sleep Study: Home sleep study HPI additional information: SAMMY BYRD was diagnosed to have moderate, AHI 19.2, obstructive sleep apnea- hypopnea syndrome and returned today for CPAP therapy second compliance after pressure change device follow-up. Sleep Study - Results Prior sleep studies: Yes Year and Where: 2019 - [facility] CPAP Compliance Data - Data Reviewed with Patient Average duration of nightly device use: 4 hours 59 minutes Compliance rate %: 50 Current pressure setting (cmH2O): 4-12 Humidity settin Heated hose settin Average residual AHI: 5.5 Central apnea: 0.2 Obstructive apnea: 0.9 Average large leak: 22 min 42 sec Subjective Missed days of use due to: reports: other (falling asleep before putting on mask) Patient concerns: reports: condensation in mask/hose (humidity on 2 and heated hose on 3). denies: aerophagia, mask discomfort, air blowing in eyes, mask leak noise, nasal congestion, dry mouth, nose, throat, epistaxis, other Observed to snore while using device: No Current pressure setting perceived as: comfortable On therapy, patient: reports: sleeping better, awakening more refreshed, being more awake and alert during the day, more rested overall. denies: drowsiness while driving Initial [place] Sleepiness Scale score: 6 (in 2019) Allergies and Home Medications Drug allergies reviewed: Yes (none) Home medication list reviewed: Yes (escitalopram for anxiety) Review of Systems Review of systems same as previous: Yes (no changes) Physical Exam Heart Rate: 87 O2 Saturation: 97 Height: 6 ft 1 in Weight: 220 lb 12.8 oz Body Mass Index: 29.1 BMI Classification: Overweight Impression and Plan 1. Obstructive Sleep Apnea-Hypopnea Syndrome, moderate, with fair treatment compliance and fair apnea control, but has elevated residual AHI of 5.5. On CPAP therapy, there is improved sleep quality and feels more rested overall. He has been forgetting to put on mask and falling asleep without his CPAP therapy going. He was encouraged to put his mask on while watching TV or reading as he prepares for bed to ensure he does not fall asleep without it on. I will adjust his pressure up to try to reduce the residual AHI. He agreed with this plan. Patient's apnea severity and rationale for treatment to reduce apnea, improve sleep quality and reduce cardiovascular and cerebrovascular events was reviewed. I also reviewed the benefit of consistent device use of CPAP for cardiac disea se, cerebrovascular disease, and depression/anxiety. Change auto CPAP pressure at 6-15 cm H2O. He is to put mask on before laying down to sleep so he does not forget to put mask on to increase compliance. Notify me if snoring with the mask or feeling that the pressure is too much or too little. Continue to lose weight. Return for follow-up in 1 month, or sooner if concerns arise. Visit Type: In Office Provider Statement: I spent 100% of the Face to Face Visit with the patient with greater than 50% spent counseling the patient and coordination of care.
== END 2020-04-12 16:03 | disposition home or self-care (01) ==
LOC: SC 16:02
PROVIDERS: ATTEND Nurse Practitioner Family
DX: G47.33 Obstructive sleep apnea (adult) (pediatric) (principal); E66.3 Overweight; Z68.29 Body mass index [BMI] 29.0-29.9, adult
CPT/HCPCS: 99212; 99213

== ENCOUNTER 2020-05-17 16:27 | Outpatient (CLI) | payer MEDICAID ==
--- NOTE | 2020-05-17 17:03 | SLEEP CARE CONSULTATION ---
Information from patient questionnaire entered by Arely Byrd. I have reviewed and concur with the information entered by Arely Byrd. This document represents the service I personally performed and the decisions made by me, Radha Welch ARNP. History of Present Illness Service Date and Time: 05/17/2020 1627 Previous diagnosis: Moderate, Obstructive Sleep Apnea-Hypopnea Syndrome AHI: 19.2 Reason for follow up: one month (Followup pressure change) Equipment type: CPAP Equipment obtained from: [employer] (did not measure face and is now having issues with mask rubbing on face/undernose; customer service not good) Mask style: Full face Backup mask available: No (will keep old mask when changes) Last cushion change: month Prior sleep studies: Yes Year and Where: 2019 - [facility] Type of Sleep Study: Home sleep study HPI additional information: SAMMY BYRD was diagnosed to have moderate, AHI 19.2, obstructive sleep apnea- hypopnea syndrome and returned today for CPAP therapy one month pressure change follow-up. Sleep Study - Results Prior sleep studies: Yes Year and Where: 2019 - [facility] CPAP Compliance Data - Data Reviewed with Patient Average duration of nightly device use: 8 h 13 min Compliance rate %: 90 Current pressure setting (cmH2O): 6-15 Humidity settin Heated hose settin Average residual AHI: 3.0 Average large leak: 43 min 18 sec Subjective Patient concerns: reports: mask discomfort (blisters under the nose, mask not fitting well under nose), nasal congestion (a little). denies: aerophagia, air blowing in eyes, mask leak noise, condensation in mask/hose, dry mouth, nose, throat, epistaxis, other Observed to snore while using device: No Current pressure setting perceived as: comfortable On therapy, patient: reports: sleeping better, awakening more refreshed, being more awake and alert during the day, more rested overall. denies: drowsiness while driving Initial [place] Sleepiness Scale score: 6 (in 2019) Current [place] Sleepiness Scale score: 12 (taking anxiety medicine that makes him sleepy) Allergies and Home Medications Drug allergies reviewed: Yes (NKDA) Home medication list reviewed: Yes (no changes) Review of Systems Review of systems same as previous: No (having tonsil surgery 10/12/20) Physical Exam Heart Rate: 78 O2 Saturation: 97 Height: 6 ft 1 in Weight: 225 lb Body Mass Index: 29.7 BMI Classification: Overweight Impression and Plan 1. Obstructive Sleep Apnea-Hypopnea Syndrome, moderate, with good treatment compliance and good apnea control. He was able to reach compliance at 90% with residual AHI of 3.3. On CPAP therapy, the patient has better sleep quality and is more rested overall. Patient received the wrong size of full face Dreamwear mask and he called [email or web address] who sent him the wrong size again (a medium wide when he was told he needed a medium). He has been getting skin soreness/blisters under his nose from the rubbing of the mask. He called [employer] who told him that he would have to pay for the mask since it was over the three day limit but he was not informed of this up front. He said no one really measured his face/nose to fit him for his mask in the first place. He is not happy with the service that [employer] is giving him. He would like to change to another company. Patient was informed that another DME can be used. I will have my merchandising coordinator inform of DME options. A DWO prescription will then be made. Patient advised to contact this office if further supply problems. Patient is also scheduled to have his tonsils removed because they are very large. He was instructed to continue use of the CPAP before and after surgery. I advised patient that 6 weeks after surgery another study could be done to reverify severity of sleep apnea and need for CPCP therapy, patient voiced understanding. Patient's apnea severity and rationale for treatment to reduce apnea, improve sleep quality and reduce cardiovascular and cerebrovascular events was reviewed. I also reviewed the benefit of consistent device use of CPAP for cardiac disease, cerebrovascular disease, and depression/anxiety. * Transfer DME and mask refitting * Change autoCPAP pressure to 7-10 cmH2O * Notify me if snoring with mask or feeling that the pressure is too much or too little * Attempt to lose weight * Call this office if any problems using CPAP * Return for follow up in 3 months, or sooner if concerns arise Visit Type: In Office Time Spent with Patient (minutes): 20 Provider Statement: I spent 100% of the Face to Face Visit with the patient with greater than 50% spent counseling the patient and coordination of care.
== END 2020-05-17 16:28 | disposition home or self-care (01) ==
LOC: SC 16:27
PROVIDERS: ATTEND Nurse Practitioner Family
DX: G47.33 Obstructive sleep apnea (adult) (pediatric) (principal); E66.3 Overweight; Z68.29 Body mass index [BMI] 29.0-29.9, adult
CPT/HCPCS: 99212; 99213

== ENCOUNTER 2020-07-20 12:14 | Outpatient (CLI) | payer MEDICAID | END 2020-07-20 12:15 | disposition home or self-care (01) | LOC: COV 12:14 | PROVIDERS: ATTEND Family Medicine | DX: R05 Cough (principal); R06.02 Shortness of breath; R06.2 Wheezing; M79.10 Myalgia, unspecified site; R53.83 Other fatigue; R68.83 Chills (without fever); J34.89 Other specified disorders of nose and nasal sinuses; R11.0 Nausea; Z20.828 Contact with and (suspected) exposure to other viral communicable diseases ==

== ENCOUNTER 2020-07-26 14:56 | Outpatient (CLI) | payer MEDICAID ==
--- NOTE | 2020-07-26 18:58 | Ultrasound Report ---
PROCEDURE: Testicle INDICATIONS: RLQ AND TESTICULAR PAIN TECHNIQUE: Real-time scanning was performed of the scrotum and testicles, with image documentation. Color and p ulse Doppler interrogation was performed of both testicles. Images for testicle ultrasound are inclu ded under the accession number [id number] . COMPARISON: None. FINDINGS: Right: Testicle is normal in size at 4.7 x 2.4 x 2.6 cm, and homogenous in echotexture. Epididymis is normal in overall size and morphology. No hydrocele or varicoceles. Overlying scrotal skin is no rmal in thickness. Left: Testicle is normal in size at 4.3 x 2.2 x 2.4 cm, and homogeneous in echotexture. Epididymis is normal in overall size and morphology. A 3 mm epididymal cyst is noted. No hydrocele or varicocele s. Overlying scrotal skin is normal in thickness. Doppler: Color and pulse Doppler demonstrate normal and symmetric arterial flow in both testicles. IMPRESSION: 1. No signs of testicular torsion or epididymitis. 2. Please see separate report from the pelvic ultrasound performed at the same time for review of ad ditional pelvic findings. Reviewed by: Larry La MD on 07/26/2020 5:57 PM [facility] Approved by: Larry La MD on 07/26/2020 5:57 PM [facility] Station ID: [id number]
--- NOTE | 2020-07-26 18:58 | Ultrasound Report ---
PROCEDURE: Pelvic Limited or F/U INDICATIONS: RLQ, TESTICULAR PAIN TECHNIQUE: Real-time transabdominal scanning was performed at the area of pain in the right lower quadrant, with image documentation. Images for this exam are located under the accession number [id number]. COMPARISON: None. FINDINGS: No inguinal hernia is seen at rest or with Valsalva maneuver. IMPRESSION: 1. No right inguinal hernia is seen. Continued concern for right lower quadrant pain, cross-sectiona l imaging such as CT may be performed. 2. Please see the separate report from the testicular ultrasound performed at the same time for revi ew of testicular findings. Reviewed by: Larry La MD on 07/26/2020 5:56 PM [facility] Approved by: Larry La MD on 07/26/2020 5:56 PM [facility] Station ID: [id number]
== END 2020-07-26 14:57 | disposition home or self-care (01) ==
LOC: DI 14:56
PROVIDERS: ATTEND Family Medicine
DX: R10.31 Right lower quadrant pain (principal); N50.811 Right testicular pain